=== PATIENT | female | born 1955 | race Caucasian/White ===

== ENCOUNTER 2017-05-03 12:51 | Outpatient (CLI) | payer OTHER ==
--- NOTE | 2017-05-04 11:53 | MMO ---
MAMMOGRAM DIGITAL SCREENING BILATERAL: DATE: 05/03/17 HISTORY: 62-year-old female for routine bilateral screening mammogram. COMPARISON: 04/29/16, 04/17/15, and 04/17/14. TECHNIQUE: Digital mammographic views. Computer-aided detection (CAD) utilized. FINDINGS: There are scattered areas of fibroglandular density. There is no evidence of suspicious mass, suspicious calcifications, or architectural distortion. The re is no significant interval change since the prior mammogram. IMPRESSION: 1. BIRADS 1 - Negative. 2. Recommendation: routine bilateral annual screening mammogram (unless the patient develops suspici ous clinical findings that would warrant earlier imaging follow up). edgar [] POS: ARTHUR
== END 2017-05-03 12:52 | disposition home or self-care (01) ==
LOC: SCSMAMMO 12:51
PROVIDERS: ATTEND Family Medicine
DX: Z12.31 Encounter for screening mammogram for malignant neoplasm of breast (principal)
CPT/HCPCS: 77067; G0202

== ENCOUNTER 2018-05-24 10:11 | Outpatient (CLI) | payer OTHER ==
--- NOTE | 2018-05-24 13:01 | BD ---
Exam: DEXA Bone Density History: 63-year-old female, menopausal. Lumbar Spine: BMD (g/cm2) L1 0.797 T-Score: -1.8 L2 0.936 T-Score: -0.8 L3 0.995 T-Score: -0.8 L4 0.925 T-Score: -1.2 L1-L4 0.917 T-Score: -1.2 Evidence for osteopenia with increased risk for fracture. Femoral Neck: 0.576 T-Score: -2.5 Total Femur: 0.813 T-Score: -1.1 Evidence for osteoporosis with high risk for fracture. Impression: FRAX score not given because some T-score is at or below -2.5. POS: ARTHUR
== END 2018-05-24 10:12 | disposition home or self-care (01) ==
LOC: BICMAMMO 10:11
PROVIDERS: ATTEND Family Medicine
DX: Z12.31 Encounter for screening mammogram for malignant neoplasm of breast (principal); Z78.0 Asymptomatic menopausal state; M81.0 Age-related osteoporosis without current pathological fracture; M85.88 Other specified disorders of bone density and structure, other site
CPT/HCPCS: 77063; 77067; 77080

== ENCOUNTER 2019-06-06 09:30 | Outpatient (CLI) | payer OTHER ==
--- NOTE | 2019-06-06 11:02 | MMO ---
Bilateral MAMMO Bilat Screen [facility]. CLINICAL HISTORY: Patient is 64 years old and is seen for screening. The patient has no family history of breast cancer. The patient has no personal history of cancer. The patient has a history of right Cyst Aspiration in 2010 - FOR AN INFECTION. VIEWS: The views performed were: bilateral craniocaudal with tomosynthesis; bilateral mediolateral oblique with tomosynthesis; and bilateral exaggerated craniocaudal. FILMS COMPARED: The present examination has been compared to prior imaging studies performed at [facility] on 04/17/2015, 04/29/2016, 05/03/2017 and 05/24/2018. This study has been interpreted with the assistance of computer-aided detection. MAMMOGRAM FINDINGS: There are scattered fibroglandular densities. There are stable benign appearing calcifications seen in both breasts. There are no suspicious masses, suspicious calcifications, or new areas of architectural distortion. IMPRESSION: THERE IS NO MAMMOGRAPHIC EVIDENCE OF MALIGNANCY. A ROUTINE FOLLOW-UP MAMMOGRAM IN 1 YEAR IS RECOMMENDED. THE RESULTS OF THIS EXAM WERE SENT TO THE PATIENT. ACR BI-RADS Category 2 - Benign finding MAMMOGRAPHY NOTE: 1. A negative mammogram report should not delay a biopsy if a dominant of clinically suspicious mass is present. 2. Approximately 10% to 15% of breast cancers are not detected by mammography. 3. Adenosis and dense breasts may obscure an underlying neoplasm. Reported by: FRANC BOCANEGRA MD Electonically Signed: [id number]
== END 2019-06-06 09:31 | disposition home or self-care (01) ==
LOC: BICMAMMO 09:30
PROVIDERS: ATTEND Family Medicine
DX: Z12.31 Encounter for screening mammogram for malignant neoplasm of breast (principal); Z98.890 Other specified postprocedural states
CPT/HCPCS: 77063; 77067

== ENCOUNTER 2020-08-26 08:20 | Outpatient (CLI) | payer MEDICARE, OTHER | END 2020-08-26 08:21 | disposition home or self-care (01) | LOC: BICMAMMO 08:20 | PROVIDERS: ATTEND Family Medicine | DX: Z12.31 Encounter for screening mammogram for malignant neoplasm of breast (principal); M81.0 Age-related osteoporosis without current pathological fracture; M85.89 Other specified disorders of bone density and structure, multiple sites | CPT/HCPCS: 77063; 77067; 77080 ==

== ENCOUNTER 2021-09-07 09:20 | Outpatient (CLI) | payer MEDICARE | END 2021-09-07 09:21 | disposition home or self-care (01) | LOC: BICMAMMO 09:20 | PROVIDERS: ATTEND Family Medicine | DX: Z12.31 Encounter for screening mammogram for malignant neoplasm of breast (principal) | CPT/HCPCS: 77063; 77067 ==